=== PATIENT | male | born 1965 | race Caucasian/White ===

== ENCOUNTER 2022-02-05 10:38 | Emergency (ER) | payer OTHER ==
[~2022-02-05] VITALS: Ht 180.3 cm; Wt 87.1 kg
[2022-02-05] MEDS ORDERED: KETO10TA2 PO (14:02)
[2022-02-05] MEDS ORDERED: TAMS0.4C PO (14:02)
== END 2022-02-05 14:08 | disposition home or self-care (01) ==
LOC: ER 10:38
DX: M54.9 Dorsalgia, unspecified (principal); Z87.442 Personal history of urinary calculi

== ENCOUNTER 2023-10-30 01:11 | Emergency (ER) | payer OTHER ==
[~2023-10-30] VITALS: Ht 180.3 cm; Wt 83.0 kg
[~2023-10-30 01:11] MED LIST: KETO10TA2 PO; TAMS0.4C PO
[2023-10-30] MEDS ORDERED: 0.9 % SODIUM CHLORIDE 1,000 ML IV STA (02:14)
[2023-10-30 02:46] LABS: HEMATOCRIT 53.2 % (39.0-48.0); HEMOGLOBIN 18.6 g/dL (13-16.00); MEAN CELL VOLUME 92.1 fL (80.0-100.00); MEAN CORPUSCULAR HEMOGLOBIN 32.2 pg (27.00-32.0); MEAN CORPUSCULAR HGB CONC 34.9 g/dl (32.0-36.0); RED BLOOD COUNT 5.77 M/uL (4.00-6.00); RED CELL DISTRIBUTION WIDTH 13.5 % (11.5-14.5)
[2023-10-30 02:48] LABS: PLATELET COUNT 92 K/uL (150-450)
[2023-10-30 02:55] LABS: INR 1.01; PARTIAL THROMBOPLASTIN TIME 28.8 SECONDS (22.0-34.0); PROTHROMBIN TIME 10.6 SECONDS (9.0-11.5)
[2023-10-30 03:00] LABS: ALBUMIN 3.3 gm/dL (3.4-5.0); BILIRUBIN TOTAL 0.42 mg/dL (0.3-1.2); CALCIUM 8.3 mg/dL (8.5-10.1); CREATININE SERUM 1.1 mg/dL (0.70-1.30); GFR 68.51; GLOBULINA 3.4 G/DL (2.4-3.5); POTASSIUM 4.82 mEq/L (3.5-5.1); TOTAL PROTEIN 6.7 gm/dL (6.4-8.2)
== END 2023-10-30 06:27 | disposition home or self-care (01) ==
LOC: ER 01:12
DX: B34.9 Viral infection, unspecified (principal)